=== PATIENT | female | born 1985 | race African-American/Black ===

== ENCOUNTER 2020-05-29 04:15 | Emergency (ER) | payer OTHER ==
[~2020-05-29] VITALS: Ht 170.2 cm; Wt 86.2 kg
[2020-05-29] MEDS ORDERED: LISINOPRIL20 MG PO (04:27)
[2020-05-29 04:41] LABS: ABSOLUTE NEUTROPHILS 9.9 thou/uL (1.4-8.2); BASOPHILS 0.3 % (0.0-2.0); EOSINOPHILS 0.9 % (0.0-3.0); HEMATOCRIT 36.9 % (37.0-47.0); LYMPHOCYTES 17.7 % (24.0-44.0); MCH 27.8 pg (26.0-34.0); MCHC 32.6 g/dL (28.0-37.0); MCV 85.1 fL (80.0-100.0); MONOCYTES 6.7 % (1.0-8.0); PLATELET COUNT 311 thou/uL (150-400); POLYS 74.4 % (36.0-66.0); RBC 4.33 mil/uL (4.20-5.00); RDW 14.4 % (10.5-14.5); WBC 13.4 thou/uL (4.0-11.0)
[2020-05-29 04:50] LABS: CALCIUM 9.9 mg/dL (8.5-10.1); CREATININE 1.1 mg/dL (0.6-1.0); POTASSIUM 3.7 mmol/L (3.5-5.1)
[2020-05-29 04:57] LABS: APTT 23.2 Seconds (24.5-32.8); PROTIME 9.9 Seconds (9.3-11.4)
[2020-05-29] MEDS ORDERED: NORCO 5-325 TA1 EAC2 PO (09:22)
[2020-05-29] MEDS ORDERED: MOBIC15 MG PO (09:22)
[2020-05-29 09:49] VITALS: BP 140/75
== END 2020-05-29 09:49 | disposition home or self-care (01) ==
LOC: ER 04:15
PROVIDERS: Emergency Medicine
DX: S01.01XA Laceration without foreign body of scalp, initial encounter (principal); S01.511A Laceration without foreign body of lip, initial encounter; S70.11XA Contusion of right thigh, initial encounter; M79.641 Pain in right hand; M79.642 Pain in left hand; M79.631 Pain in right forearm; R51.9 Headache, unspecified; R42 Dizziness and giddiness; Z79.899 Other long term (current) drug therapy; Z88.8 Allergy status to other drugs, medicaments and biological substances; Y08.02XA Assault by strike by baseball bat, initial encounter; Y93.89 Activity, other specified; Y92.89 Other specified places as the place of occurrence of the external cause; Y99.8 Other external cause status

== ENCOUNTER 2020-06-18 13:22 | Emergency (ER) | payer OTHER ==
[~2020-06-18] VITALS: Ht 167.6 cm; Wt 81.7 kg
[~2020-06-18 13:22] MED LIST: LISINOPRIL20 MG PO; MOBIC15 MG PO; NORCO 5-325 TA1 EAC2 PO
[2020-06-18] MEDS ORDERED: NORCO 5-325 TA1 EAC2 PO (14:06)
[2020-06-18 14:30] VITALS: BP 144/110
== END 2020-06-18 15:02 | disposition home or self-care (01) ==
LOC: ER 13:22
DX: S01.01XD Laceration without foreign body of scalp, subsequent encounter (principal); Z79.899 Other long term (current) drug therapy; Z88.8 Allergy status to other drugs, medicaments and biological substances; X58.XXXD Exposure to other specified factors, subsequent encounter